=== PATIENT | female | born 1960 | race African-American/Black ===

== ENCOUNTER 2022-02-13 08:56 | Inpatient (IN) | payer OTHER ==
[2022-02-13] VITALS (31 sets, daily range): BP systolic 121–172; BP diastolic 64–97
[~2022-02-13] VITALS: Ht 170.2 cm; Wt 87.5 kg
[2022-02-13] MEDS ORDERED: ONDANSETRON HCL 4MG/2ML INJ IV STA (09:15)
[2022-02-13] MEDS ORDERED: SODIUM CHLORIDE 0.9% 1,000 ML IV ONE (09:15)
[2022-02-13 10:00] LABS: CLARITY URINE CLOUDY (CLEAR); COLOR URINE YELLOW (YELLOW); KETONES URINE 1+ (NEGATIVE); LEUKOCYTE ESTERASE URINE 3+ (NEGATIVE); NITRITE URINE NEGATIVE (NEGATIVE); OCCULT BLOOD URINE NEGATIVE (NEGATIVE); PH URINE 8.5 (4.5-8.0); PROTEIN URINE TRACE (NEGATIVE); SPECIFIC GRAVITY URINE 1.015 (1.005-1.030); UROBILINOGEN URINE 0.2 E.U./dL (0.2-1.0)
[2022-02-13 10:12] LABS: BASOPHILS % 0.6 % (0.0-2.0); EOSINOPHILS % 0.6 % (0.0-5.0); HEMATOCRIT. 43.6 % (36.0-48.0); HEMOGLOBIN. 14.6 g/dL (12.0-16.0); LYMPHOCYTES % 16.2 % (20.0-50.0); MEAN CORPUSCULAR HEMOGLOBIN 30.5 pg (28.0-32.0); MEAN CORPUSCULAR VOLUME 91.1 fL (81.0-99.0); MEAN PLATELET VOLUME 8.6 fl (7.4-10.4); MONOCYTES % 3.6 % (2.0-8.0); PLATELET 300 x1000/uL (130-400); RED BLOOD CELL COUNT 4.79 mill/uL (4.2-5.4); RED CELL DISTRIBUTION WIDTH 12.8 % (11.6-14.6)
[2022-02-13 10:20] LABS: CHLORIDE 106 mEq/L (98-107)
[2022-02-13 10:22] LABS: PROTHROMBIN TIME 11.1 sec (9.6-11.0)
[2022-02-13] MEDS ORDERED: LEVOFLOXACIN 500MG PREMIX 100 ML IV ONE (11:00)
[2022-02-13] MEDS ORDERED: ALTEPLASE IV NR (11:30)
[2022-02-13] MEDS ORDERED: *NO ASPIRIN X 24 HOURS XX SCH (11:30)
[2022-02-13] MEDS ORDERED: ALTEPLASE 100MG/VIAL IV NR (11:30)
[2022-02-13] MEDS ORDERED: CONTAINER EMPTY IV NR (11:30)
[2022-02-13] MEDS ORDERED: IOHEXOL-350 100 ML BOTTLE ONE (12:03)
[2022-02-13] MEDS ORDERED: CEFTRIAXONE 1 G PREMIX 50 ML IV SCH (13:00)
[2022-02-13] MEDS ORDERED: ACETAMINOPHEN 325MG TABLET PO PRN (16:30)
[2022-02-13] MEDS: CEFTRIAXONE 1,000 MG in DEXTROSE 5% WATER 50 ML IV SCH (20:54)
[2022-02-13] MEDS: ATORVASTATIN CALCIUM 40MG TABLET PO SCH (20:54)
[2022-02-13] MEDS ORDERED: HYDROCODONE/ACETAMINOPHEN 5/325MG TABLET PO PRN (22:00)
[2022-02-13] MEDS ORDERED: NALOXONE HCL 0.4MG/ML VIAL IV PRN (22:15)
[2022-02-13] MEDS: MORPHINE SULFATE 2 MG/ML CPJ (NOT FOR IM USE) IV PRN (22:27)
[2022-02-14] VITALS (72 sets, daily range): BP systolic 118–178; BP diastolic 52–101
[2022-02-14] MEDS: ONDANSETRON HCL 4MG/2ML INJ IV PRN ×2 (03:17→07:42)
[2022-02-14 05:17] LABS: BASOPHILS % 0.2 % (0.0-2.0); EOSINOPHILS % 0.5 % (0.0-5.0); HEMATOCRIT. 40.4 % (36.0-48.0); HEMOGLOBIN. 13.4 g/dL (12.0-16.0); LYMPHOCYTES % 12.8 % (20.0-50.0); MEAN CORPUSCULAR HEMOGLOBIN 30.5 pg (28.0-32.0); MEAN CORPUSCULAR VOLUME 91.7 fL (81.0-99.0); MEAN PLATELET VOLUME 8.2 fl (7.4-10.4); MONOCYTES % 4.5 % (2.0-8.0); PLATELET 284 x1000/uL (130-400); RED CELL DISTRIBUTION WIDTH 12.6 % (11.6-14.6)
[2022-02-14 05:46] LABS: CHLORIDE 105 mEq/L (98-107)
[2022-02-14] MEDS: MORPHINE SULFATE 2 MG/ML CPJ (NOT FOR IM USE) IV PRN (06:35)
[2022-02-14] MEDS: SODIUM CHLORIDE 0.9% 1,000 ML IV SCH (11:18)
[2022-02-14] MEDS: ACETAMINOPHEN 650MG/20.3ML UDC PO PRN (18:07)
[2022-02-14] MEDS: ATORVASTATIN CALCIUM 40MG TABLET PO SCH (20:55)
[2022-02-14] MEDS: CEFTRIAXONE 1,000 MG in DEXTROSE 5% WATER 50 ML IV SCH (20:55)
[2022-02-15] VITALS (49 sets, daily range): BP systolic 112–160; BP diastolic 34–110
[2022-02-15] MEDS: SODIUM CHLORIDE 0.9% 1,000 ML IV SCH ×2 (01:10→15:31)
[2022-02-15] MEDS: ACETAMINOPHEN 650MG/20.3ML UDC PO PRN (10:12)
[2022-02-15] MEDS: ONDANSETRON HCL 4MG/2ML INJ IV PRN (10:12)
[2022-02-15] MEDS: CLOPIDOGREL 75MG TABLET PO SCH (15:29)
[2022-02-15] MEDS: CEFTRIAXONE 1,000 MG in DEXTROSE 5% WATER 50 ML IV SCH (19:57)
[2022-02-15] MEDS: ATORVASTATIN CALCIUM 40MG TABLET PO SCH (20:56)
[2022-02-16] VITALS (35 sets, daily range): BP systolic 99–181; BP diastolic 50–152
[2022-02-16] MEDS: SODIUM CHLORIDE 0.9% 1,000 ML IV SCH (07:00)
[2022-02-16] MEDS: CLOPIDOGREL 75MG TABLET PO SCH (08:49)
[2022-02-16] MEDS: ACETAMINOPHEN 650MG/20.3ML UDC PO PRN (11:45)
[2022-02-16] MEDS: ATORVASTATIN CALCIUM 40MG TABLET PO SCH (20:41)
[2022-02-16] MEDS: DOCUSATE SODIUM 100MG CAPSULE PO SCH (20:41)
[2022-02-16] MEDS: CEFTRIAXONE 1,000 MG in DEXTROSE 5% WATER 50 ML IV SCH (22:39)
[2022-02-17] VITALS: BP 117/49
[2022-02-17 04:00] VITALS: BP 140/71
[2022-02-17 08:00] VITALS: BP 141/65
[2022-02-17] MEDS: CLOPIDOGREL 75MG TABLET PO SCH (09:38)
[2022-02-17] MEDS: DOCUSATE SODIUM 100MG CAPSULE PO SCH ×2 (09:38→18:08)
[2022-02-17 12:00] VITALS: BP 122/78
[2022-02-17] MEDS ORDERED: LACTULOSE 20G/30ML UDC PO SCH (12:00)
[2022-02-17 16:00] VITALS: BP 142/76
[2022-02-17 18:29] LABS: BASOPHILS % 0.4 % (0.0-2.0); EOSINOPHILS % 1.3 % (0.0-5.0); HEMATOCRIT. 44.5 % (36.0-48.0); HEMOGLOBIN. 14.7 g/dL (12.0-16.0); LYMPHOCYTES % 22.5 % (20.0-50.0); MEAN CORPUSCULAR HEMOGLOBIN 30.1 pg (28.0-32.0); MEAN CORPUSCULAR VOLUME 90.9 fL (81.0-99.0); MEAN PLATELET VOLUME 8.5 fl (7.4-10.4); MONOCYTES % 4.9 % (2.0-8.0); NEUTROPHILS % 70.9 % (40.0-76.0); PLATELET 311 x1000/uL (130-400); RED BLOOD CELL COUNT 4.89 mill/uL (4.2-5.4); RED CELL DISTRIBUTION WIDTH 12.6 % (11.6-14.6)
[2022-02-17 18:41] LABS: CHLORIDE 105 mEq/L (98-107)
[2022-02-17 20:28] VITALS: BP 129/73
== END 2022-02-17 21:25 | disposition short-term general hospital (02) | DRG 872 ==
LOC: ER 09:11 → MICUNO 11:54 → EDBEDREQTM 11:58 → EDBEDREQSVC 11:58 → EDBEDREQ 11:58 → ENRESERV 12:27 → 6WST 02-16 17:43
PROVIDERS: ADMIT Internal Medicine; ATTEND Internal Medicine
PROC: 3E03317 Introduction of Other Thrombolytic into Peripheral Vein, Percutaneous Approach (ICD-10-PCS; 2022-02-13)
PROC: 4A10X4Z Monitoring of Central Nervous Electrical Activity, External Approach (ICD-10-PCS; principal; 2022-02-15)
DX: A41.9 Sepsis, unspecified organism (principal); I16.1 Hypertensive emergency; G93.49 Other encephalopathy; N39.0 Urinary tract infection, site not specified; G81.94 Hemiplegia, unspecified affecting left nondominant side; E78.5 Hyperlipidemia, unspecified; E66.9 Obesity, unspecified; E03.9 Hypothyroidism, unspecified; R47.81 Slurred speech; Z20.822 Contact with and (suspected) exposure to COVID-19; H53.2 Diplopia; M48.02 Spinal stenosis, cervical region; Z85.850 Personal history of malignant neoplasm of thyroid; Z88.5 Allergy status to narcotic agent; Z88.0 Allergy status to penicillin; Z68.30 Body mass index [BMI] 30.0-30.9, adult; Z92.21 Personal history of antineoplastic chemotherapy; Z92.3 Personal history of irradiation
CPT/HCPCS: 36415; 70496; 70498; 70551; 71045; 72141; 73560; 74176; 80048; 80053; 80061; 81003; 84443; 84484; 85025; 87426; 93005; 95816; 97116; 97162; 97166; 97530; 97535; 99291; C9803; J0696; J2270; J2405; J2997; J7030; J7042; J7060; Q9967